=== PATIENT | female | born 1985 | race Caucasian/White ===

== ENCOUNTER → 2016-05-24 | Outpatient (CLI) | payer MEDICAID ==
--- NOTE | 2016-05-24 12:33 | DX ---
Chest, PA and Lateral Views - May 24, 2016, at 11:42 a.m. Clinical History: 30-year-old female with a cough and chest tightness. Rule out pneumonia. Also, pre operative chest x-ray. ICD-10 Diagnostic Code: R07.89. Comparison Studies: Chest, dated October 21, 2011 and August 18, 2010. Findings: The cardiac silhouette is borderline-enlarged, with a C:T ratio of 16.0 : 31.5 cm. There is no convincing evidence of a focal infiltrate. There is no pleural effusion, peripheral interstitial edema, or pneumothorax. The trachea is midline. The osseous structures are age-appropriate. Impression: Borderline cardiac silhouette enlargement, with no convincing evidence of a focal infilt rate.
== END ==
LOC: BMCIMAGING 11:37
PROVIDERS: ATTEND Nurse Practitioner Adult Health
DX: R07.89 Other chest pain (principal)

== ENCOUNTER 2016-06-22 05:53 | Day surgery (SDC) | payer MEDICAID ==
[2016-06-22] MEDS ORDERED: ceFAZolin 3 GM in D5W 100 ML IV ONE (06:00)
[2016-06-22] MEDS ORDERED: LIDOCAINE 1% 5 ML SDV ID PRN (06:53)
[2016-06-22] MEDS ORDERED: LR 1,000 ML IV ONE (06:53)
[2016-06-22] MEDS ORDERED: BUPIVACAINE 0.25% 30 ML SDV ONE (07:01)
[2016-06-22] MEDS ORDERED: SILVER NITRATE APPLICATOR 1 APPL TP ONE ×2 (07:18→09:35)
[2016-06-22] MEDS ORDERED: PROPOFOL 200 MG/20 ML VIAL ONE (07:23)
[2016-06-22] MEDS ORDERED: fentaNYL 100 MCG/2 ML INJ ONE (07:23)
[2016-06-22] MEDS ORDERED: LIDOCAINE 2% 5 ML SDV ONE (07:24)
[2016-06-22] MEDS ORDERED: MIDAZOLAM 2 MG/2 ML VIAL ONE (07:28)
[2016-06-22] MEDS ORDERED: SCOPOLAMINE HYDROBROMIDE 1.5 MG PATCH TD ONE (07:29)
[2016-06-22] MEDS ORDERED: DEXAMETHASONE 4 MG/ML VIAL ONE ×2 (07:53)
[2016-06-22] MEDS ORDERED: ONDANSETRON 4 MG/2 ML VIAL ONE ×2 (08:44)
[2016-06-22] MEDS ORDERED: KETOROLAC 30 MG/1 ML SDV ONE (08:45)
[2016-06-22] MEDS ORDERED: SUGAMMADEX SODIUM 200 MG/2 ML VIAL IVP ONE (08:54)
[2016-06-22] MEDS ORDERED: HYDROCODONE/APAP 5/325 TAB ONE (09:47)
--- NOTE | 2016-06-26 13:07 | GOP ---
[f rep st] OPERATIVE REPORT DATE OF OPERATION: 06/22/2016 SURGEON: Jami Romeo MD TAB BUILDER: Sirena Ramirez MD PREOPERATIVE DIAGNOSIS: Desires permanent sterilization and intrauterine device removal. POSTOPERATIVE DIAGNOSIS: Desires permanent sterilization and intrauterine device removal. PROCEDURE PERFORMED: 1. Laparoscopic bilateral salpingectomy. 2. Intrauterine device removal. FINDINGS: 1. Normal uterus, fallopian tubes, and ovaries. 2. Intact IUD was removed without complications. SPECIMENS: Bilateral fallopian tubes. ESTIMATED BLOOD LOSS: Less than 5 cc. INDICATIONS: Patient is a 30-year-old, 0 female with a strong desire for permanent steriliza tion. She has been counseled extensively over the last 2 years and desires no future childbearing. She has declined all other less invasive options to include all medical options for control as well as male vasectomy. She currently has an IUD in place and desires removal in the operating room at the time of surgery due to her difficulty with pelvic exams in the past. She is morbidly obese an d had preoperative evaluation completed by her primary care provider. DESCRIPTION OF PROCEDURE: The patient was taken to the operating room, where general anesthesia was found be adequate. Patient was prepared and draped in normal sterile fashion in the dorsal lithotomy position. A single-sided speculum was placed in the patient's vagina and the cervix was visualized clearly. The IUD string was grasped and the IUD was removed intact. A single-tooth tenaculum was pl aced on the anterior lip of the cervix and a Yary uterine manipulator was placed into the cervix to p rovide a means to manipulate the uterus. The speculum was removed and attention was then turned to t he patient's abdomen. Of note, the patient was given Ancef 3 g IV preoperatively due to her increased risk due to her morbi d obesity. 0.25% Marcaine was then injected in the umbilical area. Unless otherwise noted, this was injected prior to the other incision sites as well. A 5 mm vertical skin incision was made in the p atient's umbilicus. A Veress needle was placed through this incision and into the peritoneal cavity while tenting the abdominal wall. Intraperitoneal placement was confirmed with use of a water-filled syringe and appropriate entry CO2 gas pressures. The abdomen was then insufflated with approximatel y 2.5 L of CO2 gas until tympany was noted over the liver. The Veress needle was removed and a 5 mm Optiview trocar was then used. That was placed through this incision into the peritoneal cavity unde r direct visualization with the laparoscope. Intraperitoneal placement was confirmed directly with t he laparoscope. The patient was then placed in the Trendelenburg positioning and the pelvis and abdo men were surveyed. A 5 mm skin incision was placed superior and anterior to the anterior iliac spine on the patient's left side. A 5 mm trocar was placed through this incision into the peritoneal cavi ty under direct visualization. In a similar fashion, a trocar was placed on the right side. The lef t fallopian tube was then grasped with an atraumatic grasper, and then it was excised from all its at tachments laterally to medially with a Gyrus PK cautery. Hemostasis was assured and the tube was rem kirk easily through the left 5 mm trocar and intact. In a similar fashion, the right fallopian tube was then grasped with an atraumatic grasper and the Gyrus PK cautery was used to remove it from all o f its attachments laterally to medially. Hemostasis was assured. The tube was removed from the troc ar intact. All areas of surgery and pedicles were noted to be hemostatic. The trocars were then rem kirk under direct visualization. The gas was allowed to escape from the abdomen through the umbilica l trocar prior to removal. All incisions were then closed with a subcuticular stitch of 4-0 Monocryl . Steri-Strips and bandage dressings were placed. All instruments were then removed from the patient's vagina and hemostasis was obtained with silver n itrate. The patient was then awoken from anesthesia without any immediate complications. All sponge, lap, an d needle counts correct x2. Patient was transferred to the PACU in stable and good condition. COMPLICATIONS: None. DRAINS: None. IV FLUIDS: 1200 cc. URINE OUTPUT: 125 cc. /[id number]/MODL
== END 2016-06-22 11:20 | disposition home or self-care (01) ==
LOC: FPAT 05:53 → FSGY 05:53
PROVIDERS: ATTEND Obstetrics & Gynecology
PROC: 0UB74ZZ Excision of Bilateral Fallopian Tubes, Percutaneous Endoscopic Approach (ICD-10-PCS; principal; 2016-06-22 07:30)
PROC: 0UPD8HZ Removal of Contraceptive Device from Uterus and Cervix, Via Natural or Artificial Opening Endoscopic (ICD-10-PCS; principal; 2016-06-22 07:30)
DX: Z30.2 Encounter for sterilization (principal); I10 Essential (primary) hypertension; J45.909 Unspecified asthma, uncomplicated
CPT/HCPCS: J0690; J1100; J1885; J2250; J2405; J2704; J3010

== ENCOUNTER 2016-09-16 19:56 | Emergency (ER) | payer MEDICAID, OTHER ==
--- NOTE | 2016-09-16 20:11 | EDPHY ---
H & P Time Seen by Provider: 09/16/16 20:09 HPI/ROS: CHIEF COMPLAINT: Left knee pain HISTORY OF PRESENT ILLNESS: This is a 30-year-old female presenting to the emergency department complaining of left knee pain. Patient states she was hiking around 1700 when hyper extended left knee, felt her knee buckle landing on the left knee. Patient states she was able to get up and walk a short distance with increased pain. Patient states she is having pain behind her left knee, and pain with range of motion. Denies any other injuries or complaints REVIEW OF SYSTEMS: Constitutional: No fever, no chills. Eyes: No discharge. ENT: No sore throat. Cardiovascular: No chest pain, no palpitations. Respiratory: No cough, no shortness of breath. Gastrointestinal: No abdominal pain, no vomiting. Genitourinary: No hematuria. Musculoskeletal: No back pain. Left knee pain Skin: No rashes. Neurological: No headache. Smoking Status: Never smoked Physical Exam: General Appearance: Alert, no distress. Eyes: Pupils equal and round no pallor or injection. Respiratory: Nonlabored respiratory effort Gastrointestinal: Abdomen is soft and nontender, no masses, bowel sounds normal. Neurological: No focal deficits Skin: Warm and dry, no rashes. Musculoskeletal: cervical spine nontender on palpation Neck is supple with full range of motion Extremities: symmetrical. Left knee popliteal tenderness on palpation, left knee pain with full range of motion, no obvious deformity positive CMS intact Psychiatric: Patient is oriented X 3, there is no agitation. Constitutional: Initial Vital Signs Temperature (C) 36.5 C 09/16/16 19:56 Heart Rate 100 09/16/16 19:56 Respiratory Rate 18 09/16/16 19:56 Blood Pressure 152/91 H 09/16/16 19:56 O2 Sat (%) 98 09/16/16 19:56 O2 Delivery Mode Room Air Allergies/Adverse Reactions: azithromycin Allergy (Verified 05/04/11 22:53) ciprofloxacin [Ciprofloxacin] Allergy (Verified 05/04/11 22:53) nickel Allergy (Verified 06/10/16 11:12) prednisone [Prednisone] Allergy (Verified 05/04/11 22:53) CONTRAST Allergy (Uncoded 10/27/11 11:37) Home Medications: Medication Instructions Recorded Cyclobenzaprine [Flexeril] 10 mg PO 05/04/11 Ibuprofen [Motrin (*)] 600 mg PO Q6PRN PRN #20 tab 05/05/11 Albuterol Hfa Anes Only [Proair 2 puffs IH Q2-4PRN PRN #1 mdi 10/27/11 Hfa Icu (*)] DULoxetine [Cymbalta 30 MG (RX)] mg PO 10/27/11 Ethinyl Estradiol/Drospirenone 1 each 10/27/11 [Ocella 3 Mg-0.03 Mg Tablet] ACETAMINOPHEN 06/10/16 Herbal Drugs 06/10/16 Lamictal 06/10/16 Xanax 06/10/16 Zyrtec 06/10/16 Medical Decision Making - Diagnostics Imaging Results: Imaging Impressions Knee X-Ray 09/16/16 20:11 Impression: Possible small joint effusion. No fracture. ED Course/Re-evaluation: Discussed the plan of care: Left knee x-ray positive for joint effusion no acute fracture seen 2100: Discussed x-ray results with patient. Knee immobilizer with crutches. Patient to follow up with her primary care provider through [place]. If pain becomes persistent after 7-10 days I would recommend an MRI to evaluate for any ligament or meniscus injury. 2115: Discharge home---> stable Differential Diagnosis: Differential diagnosis considered but not limited to patellar dislocation, patellar fracture, and distal femoral fracture Departure - Departure Disposition: Home, Routine, Self-Care Clinical Impression: Joint effusion of knee Knee injury Qualifiers: Encounter type: initial encounter Laterality: left Qualified Code(s): S89.92XA - Unspecified injury of left lower leg, initial encounter Condition: Good Instructions: Crutch Instructions (ED), Swollen Knee Joint (ED), Knee Immobilizer (ED) Additional Instructions: Discussed discharge instructions with patient 1. Decreased prolonged pressure on left lower extremity 2. Elevate, ice as needed 15 minutes on every hour for the next 6-12 hours for swelling. Use knee immobilizer Jignesh wrap 3. Use crutches as needed 4. Follow up with the primary care provider at [place] Referrals: Patient,NotPresent [Unknown] - As per Instructions [facility],. [Clinic] - As per Instructions
[2016-09-16 20:16] VITALS: RESP 18
[2016-09-16] MEDS ORDERED: OXYCODONE/APAP 5/325MG PREPACK#4 BTL TAKEHOME ONE (21:45)
[2016-09-16 22:12] VITALS: BP 146/90; PULSE 96; TEMP 97.9; O2SAT 96
== END 2016-09-16 22:11 | disposition home or self-care (01) ==
LOC: EDUNIT#
DX: S89.92XA Unspecified injury of left lower leg, initial encounter (principal); X58.XXXA Exposure to other specified factors, initial encounter

== ENCOUNTER → 2016-10-03 | Outpatient (CLI) | payer OTHER | LOC: FIMAGING 07:58 | PROVIDERS: ATTEND Nurse Practitioner Adult Health | DX: S83.512A Sprain of anterior cruciate ligament of left knee, initial encounter (principal) ==

== ENCOUNTER 2017-04-12 08:16 | Day surgery (SDC) | payer MEDICAID ==
--- NOTE | 2017-04-12 05:58 | GHP ---
[f rep st] HISTORY AND PHYSICAL DATE OF ADMISSION: 04/12/2017 CURRENT COMPLAINT: Left knee instability. HISTORY OF PRESENT ILLNESS: The patient is a 31-year-old female who had an injury in early September [place] and slipped, causing a hyperextension injury and a pop within the knee. MRI exa m reveals a tear to the ACL. She wishes to have surgery in order to resolve the problem. ALLERGIES: Include adhesives, ciprofloxacin, latex, nickel, prednisone, and scopolamine. CURRENT MEDICATIONS: Include alprazolam, butalbital, cyclobenzaprine, duloxetine, lamotrigine, Pro A ir inhaler, and zolpidem. PAST MEDICAL HISTORY: Include anxiety, asthma, depression, and migraines. PAST SURGICAL HISTORY: Include other x4. HABITS: She has never been a smoker and is a social drinker. PHYSICAL EXAMINATION: HEENT: Pupils equal, round, reactive to light. CHEST: Clear to auscultation . HEART: Regular rate and rhythm. ABDOMEN: Soft and nontender. EXTREMITIES: She has a positive anterior drawer. Anushka's test is unable to be performed. IMAGING: MRI reveals the ACL to be torn. ASSESSMENT AND PLAN: Patient is status post left anterior cruciate ligament tear. Plan is to take h er to the operating room. She is to undergo a left anterior cruciate ligament reconstruction. /[id number]/MODL
--- NOTE | 2017-04-12 07:54 | PDANEPAE ---
ANE History of Present Illness 31F p/f left ACL graft ANE Past Medical History - Cardiovascular History Hx Hypertension: No Hx Arrhythmias: No Hx Chest Pain: No Hx Coronary Artery / Peripheral Vascular Disease: No Hx CHF / Valvular Disease: No Hx Palpitations: No - Pulmonary History Hx COPD: No Hx Asthma/Reactive Airway Disease: Yes Hx Recent Upper Respiratory Infection: No Hx Oxygen in Use at Home: No Hx Sleep Apnea: No Sleep Apnea Screening Result - Last Documented: Negative Pulmonary History Comment: "irritant ASTHMA". 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 INTERMITTENT MIGRAINES - Cancer History Hx Cancer: No - Congenital Disorder History Hx Congenital Disorders: No - GI History Hx Gastrointestinal Disorders: Yes Gastrointestinal History Comment: INTERMITTENT HEARTBURN RELATED TO CERTAIN FOODS WILL USE TUMS NEEDED - Other Health History Other Health History: September rupture of L ACL. Pre Menstrual Dysphoric Disorder=PMDD - Chronic Pain History Chronic Pain: No - Surgical History Prior Surgeries: bilat Salpingectomy -. TONSILLECTOMY 2006. EGD/ COLONOSCOPY 2008. RT ING HERNIA. WISDOM TEETH ANE Review of Systems Review of systems is: negative Review of Systems: - Exercise capacity METS (RN): 4 METS ANE Patient History - Allergies Allergies/Adverse Reactions: azithromycin Allergy (Verified 03/23/17 10:47) Other-Enter Comments ciprofloxacin [Ciprofloxacin] Allergy (Verified 03/23/17 10:47) Other-Enter Comments nickel Allergy (Verified 03/23/17 10:47) Other-Enter Comments prednisone [Prednisone] Allergy (Verified 03/23/17 10:47) Other-Enter Comments scopolamine Allergy (Verified 03/23/17 10:48) Other-Enter Comments CONTRAST Allergy (Uncoded 03/23/17 10:47) - Home Medications Home medications: home medication list seen and reviewed Home Medications: Cyclobenzaprine [Flexeril] 10 mg PO 05/04/11 [Last Taken 04/12/17] DULoxetine [Cymbalta 30 MG (RX)] mg PO 10/27/11 [Last Taken 04/12/17] ACETAMINOPHEN 06/10/16 [Last Taken 04/12/17] Herbal Drugs 06/10/16 [Last Taken 04/12/17] Lamictal 06/10/16 [Last Taken 04/12/17] Xanax 06/10/16 [Last Taken 04/12/17] Zyrtec 06/10/16 [Last Taken 04/12/17] Ambien 03/23/17 [Last Taken 04/12/17] Lamotrigine 150 mg 04/12/17 [Last Taken 04/12/17] - Anes Hx Anes Hx: no prior problems - Smoking Hx Smoking Status: Never smoked ANE Labs/Vital Signs - Vital Signs Height: 160.02 cm Weight: 142.882 kg ANE Physical Exam - Airway Neck exam: FROM Mallampati Score: Class 1 Mouth exam: normal dental/mouth exam - Pulmonary Pulmonary: no respiratory distress - Cardiovascular Cardiovascular: regular rate and rhythym - ASA Status ASA Status: III ANE Anesthesia Plan Anesthesia Plan: general endotracheal anesthesia Regional Anesthesia: single shot NB, adductor canal FNB Specialized Airway: video laryngoscope
[~2017-04-12 08:16] MED LIST: ACETAMINOPHEN 500 MG TAB PO ONE; BUPIVACAINE 0.5% 30 ML SDV ONE; PROPOFOL 200 MG/20 ML VIAL ONE; ceFAZolin 2 GM/SWFI 2 GM/20 ML SYR IVP ONE; fentaNYL 100 MCG/2 ML INJ ONE
[2017-04-12] MEDS ORDERED: LIDOCAINE 1% 2 ML INJ ID PRN (08:28)
[2017-04-12] MEDS ORDERED: LR 1,000 ML IV ONE (08:28)
[2017-04-12] MEDS ORDERED: ACETAMINOPHEN 500 MG TAB ONE (08:33)
[2017-04-12] MEDS ORDERED: ceFAZolin 2 GM/SWFI 20 ML SYR IVP ONE (08:34)
[2017-04-12] MEDS ORDERED: BUPIVACAINE/EPI 0.5% 30 ML SDV ONE (08:35)
[2017-04-12] MEDS ORDERED: MIDAZOLAM 2 MG/2 ML VIAL ONE (08:55)
[2017-04-12] MEDS ORDERED: MIDAZOLAM 2 MG/2 ML VIAL IVP ONE (08:57)
[2017-04-12] MEDS ORDERED: fentaNYL 100 MCG/2 ML INJ ONE ×3 (09:38→11:15)
[2017-04-12] MEDS: THROMBIN (BOVINE) 5,000 UNIT VIAL TP ONE ×2 (10:15→13:49)
[2017-04-12] MEDS: CALCIUM CHLORIDE 1 GM/10 ML INJ ONE ×2 (10:15→13:50)
[2017-04-12] MEDS ORDERED: ACETAMINOPHEN 500 MG TAB PO PRN (10:32)
[2017-04-12] MEDS ORDERED: NALOXONE HCL 0.4 MG/ML INJ IVP PRN (10:32)
[2017-04-12] MEDS ORDERED: LR 500 ML IV PRN (10:32)
[2017-04-12] MEDS ORDERED: OXYCODONE/APAP 5/325 TAB PO PRN (10:32)
[2017-04-12] MEDS ORDERED: ONDANSETRON 4 MG/2 ML VIAL IVP PRN ×2 (10:32→11:11)
[2017-04-12] MEDS ORDERED: ALBUTEROL 3 ML DEYVIAL IH PRN (10:32)
[2017-04-12] MEDS ORDERED: PROMETHAZINE HCL 25 MG/ML INJ IVP PRN ×2 (10:32→11:11)
[2017-04-12] MEDS ORDERED: METOCLOPRAMIDE 10 MG/2 ML VIAL IVP PRN (11:11)
[2017-04-12] MEDS ORDERED: diphenhydrAMINE 25 MG CAP PO PRN (11:11)
[2017-04-12] MEDS ORDERED: LACTULOSE 20 GM/30 ML UDCUP PO PRN (11:11)
[2017-04-12] MEDS ORDERED: MAGNESIUM HYDROXIDE 30 ML UDCUP PO PRN (11:11)
[2017-04-12] MEDS ORDERED: ONDANSETRON DISINTEGRATING 4 MG TAB PO PRN (11:11)
[2017-04-12] MEDS ORDERED: POLYETHYLENE GLYCOL 3350 17 GM PKT PO PRN (11:11)
[2017-04-12] MEDS ORDERED: BISACODYL 10 MG SUPP PR PRN (11:11)
[2017-04-12] MEDS ORDERED: CYCLOBENZAPRINE 10 MG TAB PO PRN (11:11)
[2017-04-12] MEDS ORDERED: DIPHENOXYLATE/ATROPINE LOMOTIL 1 TAB PO PRN (11:11)
[2017-04-12] MEDS ORDERED: TEMAZEPAM 15 MG CAP PO PRN (11:11)
[2017-04-12] MEDS ORDERED: TAPENTADOL HCL 50 MG TAB PO PRN (11:11)
[2017-04-12] MEDS ORDERED: PROMETHAZINE HCL 25 MG SUPPR PR PRN (11:11)
[2017-04-12] MEDS ORDERED: traMADol 50 MG TAB PO PRN (11:11)
[2017-04-12] MEDS ORDERED: oxyCODONE IR 5 MG TAB PO PRN (11:11)
--- NOTE | 2017-04-12 11:11 | POSTOPPROG ---
Post Op Note Date of Operation: 04/12/17 Surgeon: Jackelyn Gamino Product Manager E [employer]: coltrain Anesthesia: GET(General Endotracheal), Other (Specify) Pre-op Diagnosis: l acl tear Procedure: l acl recon Inf/Abcess present in the surg proc area at time of surgery?: No Depth: Deep Incisional (Fascial) EBL: 50-100
[2017-04-12] MEDS ORDERED: HYDROmorphONE/DILAUDID 1 MG/ML INJ ONE (11:15)
[2017-04-12] MEDS: fentaNYL 100 MCG/2 ML INJ IVP PRN ×2 (11:17→11:24)
[2017-04-12] MEDS: HYDROmorphONE/DILAUDID 1 MG/ML INJ IVP PRN ×2 (11:24→11:34)
[2017-04-12] MEDS ORDERED: LR 1,000 ML IV SCH (11:30)
[2017-04-12] MEDS: HYDROCODONE/APAP 5/325 TAB PO PRN ×2 (11:38→12:08)
[2017-04-12] MEDS ORDERED: HYDROCODONE/APAP 5/325 TAB ONE ×2 (11:38→12:07)
[2017-04-12] MEDS ORDERED: ACETAMINOPHEN 325 MG TAB PO SCH (12:00)
[2017-04-12 12:01] VITALS: RESP 16
[2017-04-12] MEDS ORDERED: ONDANSETRON 4 MG/2 ML VIAL ONE (12:07)
--- NOTE | 2017-04-12 12:24 | POSTANESTH ---
Post Anesthetic Evaluation Cardiovascular Status: Normal, Stable Respiratory Status: Normal, Stable Level of Consciousness/Mental Status: Can Participate in Eval Pain Control: Adequate, Prn Tx Ordered Nausea/Vomiting Control: Adequate, Prn Tx Ordered Complications Possibly Related to Anesthesia: None Noted
[2017-04-12 12:33] VITALS: TEMP 97.5
[2017-04-12 12:49] VITALS: BP 118/83; PULSE 95; O2SAT 99
--- NOTE | 2017-04-12 13:24 | GOP ---
[f rep st] OPERATIVE REPORT DATE OF OPERATION: 04/12/2017 SURGEON: Jackelyn Gamino MD CASE LOADER OPERATOR: Alvin Bullock, CSFA, LSA, whose presence was medically necessary. ANESTHESIA: Endotracheal intubation plus adductor nerve block per surgeon's request. PREOPERATIVE DIAGNOSIS: Left anterior cruciate ligament tear. POSTOPERATIVE DIAGNOSIS: Left anterior cruciate ligament tear. PROCEDURE PERFORMED: Left anterior cruciate ligament reconstruction with allograft. FINDINGS: INDICATIONS: This is a 31-year-old female who had fallen while hiking back in September, was diagnosed wit h an ACL tear. Continued to complain of instability, opted for surgery in order to resolve the probl em. DESCRIPTION OF PROCEDURE: Patient brought to the operating room after the left side had been identif ied as the correct side by the patient, nurse and physician. Once in the operating room, she was giv en an adductor canal nerve block and then placed under general anesthesia using endotracheal intubati on. Once asleep, a tourniquet placed around the upper portion of the left thigh with both legs place d in appropriate leg holders. Left lower extremity was then sterilely prepped and draped in usual fa shion using GSI solution. Once prepped and draped, limb was exsanguinated, tourniquet inflated to 30 0 mmHg. Incision was made the superomedial portion of the knee with an outflow trocar without diffic ulty. A 2nd incision was made lateral to the patellar tendon between the inferior pole of the patell a and the tibial patella, inserted a camera without difficulty. Inspection of joint revealed no loos e bodies in the suprapatellar pouch or the medial lateral gutter. There were noted to be no chondral changes to the patella or the trochlea. Further inspection revealed the ACL ligament to be torn off its origin, and there were no meniscal tears and no chondral changes noted in the medial and lateral compartments. While the allograft was being prepared for implantation, the debris associated with the ACL was remov ed from the intercondylar notch. Once thoroughly cleaned, the intercondylar notch guide was put into place and knee brought to full extension. A guidewire was placed through the bullet guide into the knee. Once noted to be in proper position between the anterior horns of the medial and lateral menis cus and approximately 7 mm anterior to the PCL, a notchplasty was performed using a combination of re verse curette and bur to remove an adequate amount of bone and cartilage. Once completed, the graft had been prepared enough to measure it at 10 mm in diameter. Therefore, a 10 mm cannulated drill was passed over the guidewire in the tibial tunnel. A 6 mm offset guide was then passed through the tib ial tunnel and perched on the posterior portion of the intercondylar notch. With the guidewire passe d through, the 6 mm offset guide going through the tibia and into the femur exiting the anterior david ex of the femur, an EndoButton drill was then passed over this guidewire, the drill exiting the anter ior cortex of the femur. The tunnel was measured to be 38 mm in depth. Therefore, the guidewire was reintroduced through the tibial tunnel through the femoral tunnel, exiting the anterolateral thigh, where it was clamped into place, and a 10 mm ball-tipped drill was then passed through the tibial yelena jocelin over the guidewire and to a depth of 25 mm, into the femoral tunnel. Once in place, any debris w as removed using a combination of shaver and drainage through the tibial tunnel. Once the graft had been fully prepared and was passed over the locking guide, the guide sutures were passed through the tibial tunnel, femoral tunnel, exiting the anterolateral thigh, with 1 of the sutu res pulled through the medial portal site. The rest of the graft was then introduced into the knee. Once the EndoButton had been flipped onto the anterior cortex of the femur, it was tugged on tightly in order to assure proper positioning. The graft suture was then tightened, pulling the graft into the femoral tunnel. Once in the femoral tunnel, it was tugged on to ensure that it continued to liane in tight. The tightening sutures were then cut short within the intercondylar notch. The knee was brought through range of motion, noted to have no excursion of the graft through range o f motion. Pictures were taken showing the graft did not impinge upon the ceiling of the intercondyla r notch. The graft was then tensioned with the knee in 30 degrees of flexion, with expansion bolt pl aced within the tibial tunnel, and an appropriate screw placed within the tunnel in order to create a n interference fit to secure the tibial portion of the graft in place. The tails of the graft were t hen cut short. The camera was reintroduced into the knee. The knee was had a Anushka's maneuver performed, showing less than 3 mm of motion of the tibia relative to the femur. Pictures were taken of the graft, espec ially as it was pulled, showing that it would remain taut within the intercondylar notch. Then, 30 cc of Marcaine was infused into the knee joint. The 3 portal sites were closed using 3-0 ny sukhjinder suture in a ojxxiq-st-hzrav type stitch. The tibial wound was then closed using a combination of 0 Vicryl. 2-0 Vicryl suture, and a 3-0 V-Loc suture, and a running subcuticular stitch to close the skin. The tibial wound was dressed using Steri-Strips. All wounds were then dressed with Xeroform, 4 x 4, wrapped in Kerlix. Leg was completely undraped in the operating room, tourniquet removed from the thigh, and 2 Jignesh wraps placed around her knee. She then had the right leg taken out of its leg parham. She was placed supine. She was woken up, extubated, transferred onto a stretcher, and sent to recovery room in good condition. TOURNIQUET TIME: 60 minutes. /[id number]/MODL
[2017-04-12] MEDS ORDERED: FAMOTIDINE 20 MG TAB PO SCH (21:00)
[2017-04-12] MEDS ORDERED: SENNOSIDES/DOCUSATE SODIUM TAB PO SCH (21:00)
[2017-04-12] MEDS ORDERED: ASPIRIN 325 MG TAB PO SCH (21:00)
== END 2017-04-12 12:50 | disposition home or self-care (01) ==
LOC: FSGY 08:16
PROVIDERS: ATTEND Orthopaedic Surgery
PROC: 0MQP0ZZ Repair Left Knee Bursa and Ligament, Open Approach (ICD-10-PCS; principal; 2017-04-12 09:45)
DX: S83.512A Sprain of anterior cruciate ligament of left knee, initial encounter (principal); G47.33 Obstructive sleep apnea (adult) (pediatric); E66.01 Morbid (severe) obesity due to excess calories; W17.81XA Fall down embankment (hill), initial encounter; Y93.01 Activity, walking, marching and hiking
CPT/HCPCS: 27427; C1763; C1713; C1762; J0171; J0690; J1170; J2250; J2405; J2704; J3010; L1832